=== PATIENT | male | born 1950 | race Caucasian/White ===

== ENCOUNTER → 2017-06-12 | Outpatient (CLI) | payer OTHER ==
--- NOTE | 2017-06-12 13:14 | RADIOLOGY REPORT (SQ) ---
EXAM DESCRIPTION: NM GASTRIC EMPTYING STUDY COMPLETED DATE/TIME: 06/12/2017 12:40 pm REASON FOR STUDY: OTHER INTESTINAL OBSTRUCTION (K56.69), DYSPHAGIA (R13.10), GERD (K21.9) K56.69 OT HER INTESTINAL OBSTRUCTION R13.10 DYSPHAGIA, UNSPECIFIED K21.9 GASTRO-ESOPHAGEAL REFLUX DISEASE WIT HOUT ESOPHAGITIS COMPARISON: None. RADIONUCLIDE AND DOSE: 2.09 millicuries Tc-99m Sulfur Colloid. The route of agent administration: Oral. TECHNIQUE: Serial images acquired to 4 hours with each image recorded over a 30 minute time frame. I mage intensity values plotted with respect to time with linear regression algorithm. LIMITATIONS: None. FINDINGS: Patient was observed for 4 hours. Gastric emptying at 30 minutes with 14% Gastric emptying at 60 minutes was 29%. Gastric emptying at 90 minutes was 43%. Gastric emptying at 120 minutes was 58% Gastric emptying at 240 minutes was 100%. IMPRESSION: SLIGHTLY IMPAIRED GASTRIC EMPTIED AT 90 MINUTES. 43% EMPTYING WITH NORMAL VALUE GREATER THAN 50%. TECHNICAL DOCUMENTATION: JOB ID: [id number] [employer]- All Rights Reserved
== END ==
LOC: RAD 07:41
PROVIDERS: ATTEND Surgery
DX: K56.69 Other intestinal obstruction (principal); R13.10 Dysphagia, unspecified; K21.9 Gastro-esophageal reflux disease without esophagitis
CPT/HCPCS: 78264; A9541

== ENCOUNTER → 2018-07-29 | Outpatient (CLI) | payer OTHER ==
--- NOTE | 2018-07-29 11:21 | RADIOLOGY REPORT (SQ) ---
EXAM DESCRIPTION: BARIUM SWALLOW ESOPHAGUS COMPLETED DATE/TIME: 07/29/2018 10:10 am REASON FOR STUDY: DYSPHAGIA, UNSPECIFIED R13.10 DYSPHAGIA, UNSPECIFIED COMPARISON: Gastric emptying study 06/12/2017 Two-view chest 10/01/2015 CT abdomen pelvis 05/18/2014 TECHNIQUE: Under fluoroscopic guidance, patient ingested effervescent granules followed by thick and thin barium. Fluoroscopic spot images and routine radiographic images acquired and stored on PACS. 12 MM BARIUM TABLET GIVEN: Yes. 12 mm barium tablet paused in the hiatal hernia just above the hemidiaphragm for about 1 minutes, rep roducing the patient's symptoms. LIMITATIONS: None. FLUOROSCOPY TIME: FLUORO TIME: 2 minutes 21 seconds 9 series of digital images saved to PACS. FINDINGS: NEUROMUSCULAR COORDINATION OF SWALLOW: Normal. No aspiration. ESOPHAGEAL MOTILITY: Occasional tertiary contractions of the esophagus. No spasm. ESOPHAGEAL MUCOSA: Normal mucosa without masses or ulceration. GASTRO-ESOPHAGEAL JUNCTION: Tiny hiatal hernia. No Schatzki's ring. No gastroesophageal reflux was prompted during today's study. However, the 12 mm barium tablet paused in the hiatal hernia just abo ve the hemidiaphragm for about 1 minute, reproducing the patient's symptoms. NON-GI TRACT STRUCTURES: No significant finding. OTHER: No other significant finding. IMPRESSION: Tiny hiatal hernia. No distal esophageal stricture/Schatzki's ring. 12 mm barium tablet paused in the hiatal hernia for about 1 minute, reproducing the patient's symptom s COMMENT: Quality ID [id number]: Final reports for procedures using fluoroscopy that document radiation exp osure indices, or exposure time and number of fluorographic images (if radiation exposure indices are not available) TECHNICAL DOCUMENTATION: JOB ID: [id number] [employer]- All Rights Reserved Reading location - IP/workstation name: [id number]
== END ==
LOC: RAD 09:22
PROVIDERS: ATTEND Internal Medicine
DX: R13.10 Dysphagia, unspecified (principal)
CPT/HCPCS: 74220

== ENCOUNTER → 2019-10-02 | Outpatient (CLI) | payer OTHER ==
--- NOTE | 2019-10-03 12:18 | XCELERA REPORT ---
[address] [address] Lower Extremity Arterial Evaluation Name: BRYCE LIVE Age: 69 yrs Gender: Male : 1950 Patient Status: Outpatient Patient Location: [facility] Study Date: 10/02/2019 11:20 AM Procedure: A color flow and duplex scan of the lower extremity arteries was performed bilaterally with velocity and waveform anaylsis. Reason For Study: PAD Ordering Physician: SEBASTIEN DUMONT Performed By: Thony Hernandez Measurements and Calculations Right Left HOME HEALTH MANAGER PSV 84.4 122.9 cm/sec Prox PFA PSV -82.2 -83.4 cm/sec Prox SFA PSV 84.9 93.7 cm/sec Mid SFA PSV -187.5 -109.6cm/sec Dist SFA PSV -72.7 -76.1 cm/sec Prox Pop A PSV 62.2 52.4 cm/sec Dist Pop A PSV -68.4 -72.0 cm/sec Dist MARIANN PSV 92.8 76.1 cm/sec Dist CLAIM REPRESENTATIVE PSV 75.0 40.4 cm/sec Eduar Pedis PSV 94.8 74.2 cm/sec Right Side Arterial Evaluation Plaque seen in gonzalez on jackson scale imaging of larger vessels. Normal velocity and triphasic waveforms noted from the Common Femoral artery to the infrageniculate vessels . Ankle Brachial index not done. Left Side Arterial Evaluation Plaque seen in gonzalez on jackson scale imaging of larger vessels. Normal velocity and triphasic waveforms noted from the Common Femoral artery to the infrageniculate vessels . Ankle Brachial index not done. Interpretation Summary No hemodynamically significant lesions in the bilateral lower extremities, on duplex imaging, at rest. Atherosclerotic plaque seen in arterial gonzalez. : SEBASTIEN DUMONT > Trent Murphy
== END ==
LOC: SP 10:28
PROVIDERS: ATTEND Physician Assistant
DX: I73.9 Peripheral vascular disease, unspecified (principal)
CPT/HCPCS: 93925